=== PATIENT | male | born 1985 | race Caucasian/White ===

== ENCOUNTER 2019-03-01 05:55 | Day surgery (SDC) | payer OTHER ==
[2019-03-01] MEDS: CEFAZOLIN 2 GM/50 ML (PMX) 50 ML IVPB (06:00)
[2019-03-01] MEDS ORDERED: BUPIVACAINE 0.25% (MPF) 30 ML INJ (06:55)
[2019-03-01] MEDS: SOD CHLORIDE 0.9% 1,000 ML IV (07:17)
[2019-03-01] MEDS ORDERED: DESFLURANE 15 MIN (07:30)
[2019-03-01] MEDS ORDERED: HYDROmorphONE 1 MG/5 ML IV SYRINGE IV ×5 (07:30)
[2019-03-01] MEDS ORDERED: LABETALOL HCL 20MG INJ IV ×2 (07:30)
[2019-03-01] MEDS ORDERED: FENTAnyl 50 MCG/ML VIAL IV ×6 (07:30)
[2019-03-01] MEDS ORDERED: MEPERIDINE 25 MG INJ IV ×2 (07:30)
[2019-03-01] MEDS ORDERED: EPHEDrine 25 MG/5 ML SYG IV ×2 (07:30)
[2019-03-01] MEDS ORDERED: ALBUTEROL 0.083% (NEB) 2.5 MG/3 ML AMP HHN ×2 (07:30)
[2019-03-01] MEDS ORDERED: ONDANSETRON 4 MG INJ IV ×2 (07:30)
[2019-03-01] MEDS ORDERED: MIDAZOLAM 1 MG/ML 2 ML INJ IV ×2 (07:30)
[2019-03-01] MEDS ORDERED: hydrALAzine 20 MG INJ IV ×2 (07:30)
[2019-03-01] MEDS ORDERED: OXYCODONE/ACETAMINOPHEN (5/325) TAB PO ×3 (07:30)
[2019-03-01] MEDS ORDERED: TRIMETHOBENZAMIDE 100 MG/ML VIAL IM ×2 (07:30)
[2019-03-01] MEDS ORDERED: DIPHENHYDRAMINE 50 MG INJ IV ×2 (07:30)
[2019-03-01] MEDS ORDERED: IPRATROPIUM (NEB) 0.5 MG/2.5 ML AMP HHN ×2 (07:30)
[2019-03-01] MEDS ORDERED: CEFAZOLIN 1 GM INJ (07:33)
[2019-03-01] MEDS ORDERED: NEOSTIGMINE 3 MG/3 ML SYRINGE (07:33)
[2019-03-01] MEDS ORDERED: ROCURONIUM 50 MG INJ (07:33)
[2019-03-01] MEDS ORDERED: GLYCOPYRROLATE 0.4 MG INJ (07:33)
[2019-03-01] MEDS ORDERED: PROPOFOL 20 ML (07:33)
[2019-03-01] MEDS ORDERED: FENTAnyl 50 MCG/ML VIAL ×3 (07:35→08:26)
[2019-03-01] MEDS ORDERED: ONDANSETRON 4 MG INJ (07:36)
[2019-03-01] MEDS ORDERED: MIDAZOLAM 1 MG/ML 2 ML INJ (07:36)
[2019-03-01] MEDS ORDERED: DEXAMETHASONE 4 MG/ML 5 ML INJ (07:36)
[2019-03-01] MEDS ORDERED: ROPIVACAINE 0.5 % 30 ML VIAL (07:42)
[2019-03-01] MEDS ORDERED: KETOROLAC 30 MG INJ (08:18)
[2019-03-01] MEDS ORDERED: METOCLOPRAMIDE 10 MG INJ (08:18)
[2019-03-01] MEDS: HYDROmorphONE 1 MG/5 ML IV SYRINGE IV (08:59)
[2019-03-01] MEDS: OXYCODONE/ACETAMINOPHEN (5/325) TAB PO (09:15)
[2019-03-01] MEDS: HYDROCODONE/APAP (5/325) TAB PO (09:19)
== END 2019-03-01 10:05 | disposition home or self-care (01) ==
LOC: SDS 05:55
DX: K82.4 Cholesterolosis of gallbladder (principal)
CPT/HCPCS: 47562; 88304